=== PATIENT | female | born 1970 | race Caucasian/White ===

== ENCOUNTER → 2021-10-08 | Outpatient (CLI) | payer OTHER ==
--- NOTE | 2021-10-08 13:32 | US ---
EXAMINATION TYPE: US soft tissue head/neck DATE OF EXAM: 10/08/2021 COMPARISON: NONE CLINICAL HISTORY: R22.9 Subcutaneous Nodule. Palpable soft tissue lateral right facial cheek noted x 1.5 years and possible palpable medial right face. Right face US: at lateral face palpable hyperechoic oval mass is noted with appearance of lipoma = 0 .9 x 1.0 x 0.3cm. IMPRESSION: Subcutaneous lipoma noted.
== END | disposition home or self-care (01) ==
LOC: RADUSWWP 11:05
PROVIDERS: ATTEND Pediatrics
DX: D17.0 Benign lipomatous neoplasm of skin and subcutaneous tissue of head, face and neck (principal)
CPT/HCPCS: 76536